=== PATIENT | female | born 1980 | race Caucasian/White ===

== ENCOUNTER 2023-05-24 10:27 | Emergency (ER) | payer OTHER ==
[2023-05-24] MEDS: predniSONE 20 MG Tab PO ONE (12:19)
[2023-05-24] MEDS: traMADol 50 MG Tab PO ONE (12:20)
[2023-05-24] MEDS: Ketorolac 30 MG/ML SDV IM ONE (12:21)
== END 2023-05-24 12:35 | disposition home or self-care (01) ==
LOC: LL.ED 10:27
DX: S49.91XA Unspecified injury of right shoulder and upper arm, initial encounter (principal); M77.8 Other enthesopathies, not elsewhere classified; J45.909 Unspecified asthma, uncomplicated; Z88.8 Allergy status to other drugs, medicaments and biological substances; Z72.0 Tobacco use; Z79.82 Long term (current) use of aspirin; Z79.899 Other long term (current) drug therapy; Z91.041 Radiographic dye allergy status; X50.3XXA Overexertion from repetitive movements, initial encounter
CPT/HCPCS: 73070-RT; 96372; 99283; A9270-GY; J1885; J7512